=== PATIENT | female | born 1945 | race Caucasian/White ===

== ENCOUNTER 2022-03-09 21:27 | Emergency (ER) | payer MEDICARE, BC ==
[2022-03-09] MEDS ORDERED: Take Home: Acetaminophen/HYDROcodone 325-5 MG, 5 Tab Pack PO ONE (22:54)
== END 2022-03-09 23:15 | disposition home or self-care (01) ==
LOC: VM.ED 21:27
DX: M25.572 Pain in left ankle and joints of left foot (principal); M25.462 Effusion, left knee; I10 Essential (primary) hypertension; E11.9 Type 2 diabetes mellitus without complications; Z87.891 Personal history of nicotine dependence; W01.0XXA Fall on same level from slipping, tripping and stumbling without subsequent striking against object, initial encounter
CPT/HCPCS: 73562-LT; 73610-LT; 99283; A9270-GY

== ENCOUNTER 2022-08-09 09:28 | Emergency (ER) | payer MEDICARE, BC ==
[2022-08-09] MEDS ORDERED: Ketorolac 30 MG/ML SDV IM ONE (09:40)
[2022-08-09] MEDS ORDERED: Orphenadrine 60 MG/2 ML Inj IM ONE (09:40)
[2022-08-09] MEDS ORDERED: Acetaminophen/HYDROcodone 325-5 MG Tab PO ONE (10:32)
== END 2022-08-09 11:36 | disposition home or self-care (01) ==
LOC: VM.ED 09:28
DX: M54.31 Sciatica, right side (principal); I10 Essential (primary) hypertension; E78.00 Pure hypercholesterolemia, unspecified; E11.9 Type 2 diabetes mellitus without complications; M19.90 Unspecified osteoarthritis, unspecified site; Z88.1 Allergy status to other antibiotic agents; Z88.5 Allergy status to narcotic agent; Z91.048 Other nonmedicinal substance allergy status; Z79.82 Long term (current) use of aspirin; Z79.4 Long term (current) use of insulin; Z79.899 Other long term (current) drug therapy
CPT/HCPCS: 96372; 99283; 99284; A9270-GY; J1885; J2360